=== PATIENT | female | born 1985 | race Two or more races ===

== ENCOUNTER 2018-10-24 08:07 | Emergency (ER) | payer OTHER ==
[~2018-10-24] VITALS: Ht 160 cm; Wt 79.8 kg
[2018-10-24 08:13] VITALS: Ht 160 cm; Wt 79.8 kg
[2018-10-24 08:55] VITALS: BP 122/68
== END 2018-10-24 08:55 | disposition home or self-care (01) ==
LOC: ED 08:07
DX: H60.501 Unspecified acute noninfective otitis externa, right ear (principal)